=== PATIENT | female | born 1970 | race Asian ===

== ENCOUNTER 2020-08-13 08:34 | Outpatient (CLI) | payer OTHER ==
[2020-08-13] MEDS ORDERED: IOVERSOL 320 100 ML VIAL IVP ONE ×2 (08:51→11:31)
[2020-08-13] MEDS ORDERED: IOPAMIDOL-300 50 ML VIAL ONE (08:51)
[2020-08-13] MEDS ORDERED: IOPAMIDOL-300 50 ML VIAL PO ONE (11:32)
--- NOTE | 2020-08-13 14:35 | Nuclear Medicine Report ---
PROCEDURE: Bone Whole Body INDICATIONS: HX L BREAST CA RADIOPHARMACEUTICAL: 26.1 mCi Tc-99m MDP IV. TECHNIQUE: Delayed whole-body scintigrams were obtained approximately 3-4 hours after intravenous injection of r adiotracer. Anterior and posterior views were acquired from vertex to feet. Additional left and rig ht oblique views of the thorax as well as lateral views of the calvarium were obtained. COMPARISON: CT chest, abdomen, pelvis 08/13/2020 FINDINGS: No suspicious foci of uptake demonstrated to suggest osseous metastatic disease. There is normal excr etion within the kidneys and bladder. There is a small amount of radiopharmaceutical projecting over the left chest wall which may correspond to the patient's left breast cancer. IMPRESSION: 1. No definite osseous metastatic disease. 2. Indistinct activity demonstrated in the region of the left chest wall may correspond to uptake in patient's left breast cancer. Reviewed by: Jon Aranda MD on 08/13/2020 2:34 PM PDT Approved by: Jon Aranda MD on 08/13/2020 2:34 PM PDT Station ID: [id number]
--- NOTE | 2020-08-13 15:14 | CT Report ---
PROCEDURE: CHEST W INDICATIONS: HX L BREAST CA CONTRAST: IV CONTRAST: Optiray 320 ml: 100 PO CONTRAST: Isovue 300 ml50 TECHNIQUE: After the administration of intravenous contrast, 5 mm thick sections acquired from the pulmonary api [place] to the posterior costophrenic angles. 7 mm thick coronal MIP reformats were acquired. For radia tion dose reduction, the following was used: automated exposure control, adjustment of mA and/or kV according to patient size. COMPARISON: None. FINDINGS: Image quality: Excellent. Lungs and pleura: No acute air space opacities. No pleural effusions or pneumothorax. Central and peripheral airways are patent and normal in caliber. Mediastinum: Heart size is normal. No pericardial effusion. No mediastinal or hilar adenopathy by size criteria. Thoracic aorta and central pulmonary arteries are normal in size. Esophagus is nasim l in caliber. No hiatal hernia. Bones and chest wall: A peripherally enhancing mass is seen in the upper outer quadrant of the left breast measuring approximately 5.9 x 4.1 x 6.5 cm. There is central hypoattenuation that may indicate necrosis. A few surgical clips are seen along the posterolateral margin of the mass. The mass abuts the skin surface anterosuperiorly. There is focal obliteration of the fat plane between the mass in t he left anterior chest wall (image 32 of series 3). A 2 x 1.6 cm peripherally enhancing lesion is seen deep to the lateral margin of the pectoralis major muscle that may represent a enlarged level 2 lymph node. A heterogeneously enhancing mass in the lef t axilla measures 3.2 x 1.9 cm with associated surgical clips, most likely representing axillary lymp hadenopathy. Possible nonspecific small left internal mammary lymph nodes are seen (images 33 and 26 of series 3) measuring up to 0.4 cm in short axis diameter. No supraclavicular lymph nodes are seen. No right axillary lymph nodes are identified. No suspicious bony lesions. No vertebral body compression fractures. Thyroid gland appears normal. Abdomen: Visualized upper abdominal solid organs appear normal. Upper abdominal bowel loops are nor mal in caliber. IMPRESSION: 1. Large peripherally enhancing mass in the left breast measures up to 6.5 cm in greatest dimension and abuts the skin surface anteriorly. There is focal loss of fat plane between the mass and the ante rior chest wall, and involvement of the adjacent musculature is not excluded. No osseous invasion is seen. 2. Left axillary 3.2 x 1.9 cm peripherally enhancing mass most likely represents axillary metastatic disease. Additional enlarged level 2 lymph node is seen deep to the left pectoralis major muscle rocky suring 2 x 1.6 cm. Questionable nonspecific small left internal mammary lymph nodes are seen measurin g up to 0.4 cm in short axis diameter. No supraclavicular or right axillary lymphadenopathy. 3. No signs of distant metastatic disease in the chest. Reviewed by: Ab Paniagua MD on 08/13/2020 3:13 PM PDT Approved by: Ab Paniagua MD on 08/13/2020 3:13 PM PDT Station ID: [id number]
--- NOTE | 2020-08-13 15:23 | CT Report ---
PROCEDURE: Abdomen/Pelvis W INDICATIONS: HX L BREAST CA CONTRAST: IV CONTRAST: Optiray 320 ml: 100 PO CONTRAST: Isovue 300 ml50 TECHNIQUE: After the administration of oral and intravenous contrast, 5 mm thick sections acquired from the diap hragms to the symphysis. 5 mm thick coronal and sagittal reformats were acquired. For radiation dos e reduction, the following was used: automated exposure control, adjustment of mA and/or kV accordin g to patient size. COMPARISON: None. FINDINGS: Image quality: Excellent. ABDOMEN: Lung bases: Lung bases are clear. Heart size is normal. Solid organs: Liver and spleen are normal in size and enhancement. Gallbladder appears normal. Siddhartha iary system is non dilated. Pancreas enhances normally. No adrenal nodules. Kidneys demonstrate no rmal size and enhancement, without hydronephrosis. Peritoneum and bowel: Bowel loops demonstrate normal wall thickness and caliber. No free fluid or a ir. Nodes and vessels: No retroperitoneal or mesenteric adenopathy by size criteria. Aorta and inferior vena cava are normal in size. Miscellaneous: No ventral hernias. PELVIS: Genitourinary: Bladder wall thickness is normal. The uterus has an abnormal contour with heterogene ous enhancement, most likely secondary to multiple uterine fibroids. No suspicious adnexal mass is id entified. Miscellaneous: No inguinal hernias or adenopathy. Bones: No suspicious bony lesions. No vertebral body compression fractures. IMPRESSION: 1. No CT evidence of metastatic disease in the abdomen or pelvis. 2. Heterogeneous enhancement and lobular appearance of the uterus is most likely secondary to multip le uterine fibroids. Pelvic ultrasound may be obtained for confirmation if clinically indicated. Reviewed by: Ab Paniagua MD on 08/13/2020 3:21 PM PDT Approved by: Ab Paniagua MD on 08/13/2020 3:21 PM PDT Station ID: [id number]
== END 2020-08-13 08:35 | disposition home or self-care (01) ==
LOC: DI 08:34
PROVIDERS: ATTEND Internal Medicine Hematology & Oncology
DX: N63.21 Unspecified lump in the left breast, upper outer quadrant (principal); N63.32 Unspecified lump in axillary tail of the left breast
CPT/HCPCS: 71260; 74177; 78306; Q9967

== ENCOUNTER 2021-11-12 10:50 | Outpatient (CLI) | payer OTHER ==
--- NOTE | 2021-11-12 12:23 | CT Report ---
PROCEDURE: CHEST WO INDICATIONS: F/U BREAST CANCER STAGE 3-4 TECHNIQUE: Noncontrast 1mm axial images were acquired from the pulmonary apices to the posterior costophrenic an gles. Axial 5 mm soft tissue kernel reconstructions were performed as well as 8 mm axial MIP and cor onal and sagittal 5 mm reformations. For radiation dose reduction, the following was used: automate d exposure control, adjustment of mA and/or kV according to patient size. COMPARISON: 08/13/2020 FINDINGS: Image quality: Excellent. Lungs and pleura: No acute air space opacities. No pleural effusions or pneumothorax. Central and peripheral airways are patent and normal in caliber. Mediastinum: Heart size is normal. No pericardial effusion. No mediastinal adenopathy by size crit eria. Thoracic aorta and central pulmonary arteries are normal in size. Esophagus is normal in luis alberto lawanda. No hiatal hernia. Bones and chest wall: No suspicious bony lesions. No vertebral body compression fractures. No axil sudhir or supraclavicular adenopathy by size criteria. Surgical absence of the left breast. Left axilla ry node resection. Right chest Port-A-Cath, the tip which extends to the SVC right atrial junction. T hyroid is grossly unremarkable as imaged. Abdomen: Large fecal load. Visualized upper abdominal solid organs and bowel loops appear normal in t he absence of contrast. IMPRESSION: 1. Interval left mastectomy and left axillary node resection. 2. No evidence of residual, recurrent, or static disease in the chest. 3. Large fecal load. CLINICAL RECOMMENDATION STATEMENTS: In patients <35 years with an ITN detected on CT, MRI, or extrathyroidal ultrasound, the Committee re commends further evaluation with dedicated thyroid ultrasound if the nodule is "e1 cm and has no susp icious imaging features, and if the patient has normal life expectancy. In patients "e35 years with an ITN detected on CT, MRI, or extrathyroidal ultrasound, the Committee r ecommends further evaluation with dedicated thyroid ultrasound if the nodule is "e1.5 cm and has no s uspicious imaging features, and if the patient has normal life expectancy. (ACR, 2014) Reviewed by: Ruy Nguyễn MD on 11/12/2021 12:21 PM PDT Approved by: Ruy Nguyễn MD on 11/12/2021 12:21 PM PDT Station ID: [id number]
--- NOTE | 2021-11-12 12:37 | CT Report ---
PROCEDURE: Abdomen/Pelvis WO INDICATIONS: F/U BREAST CANCER STAGE 3-4 TECHNIQUE: Noncontrast 5 mm thick sections acquired from the diaphragms to the symphysis. 5 mm coronal and sagi ttal reformats were then performed. For radiation dose reduction, the following was used: automated exposure control, adjustment of mA and/or kV according to patient size. COMPARISON: CT abdomen and pelvis with contrast dated 08/13/2020. FINDINGS: Image quality: Excellent. ABDOMEN: Lung bases: Lung bases are clear. Heart size is normal. Left breast is surgically absent. Solid organs: Liver and spleen are normal in size. Gallbladder is unremarkable, without calcified g allstones. Pancreas is normal in contours. No adrenal nodules. Kidneys are normal in size, without hydronephrosis or nephrolithiasis. Peritoneum and bowel: Unenhanced bowel loops demonstrate normal wall thickness and caliber. No free fluid or air. Very large fecal load. Nodes and vessels: No retroperitoneal or mesenteric adenopathy by size criteria. Aorta and inferior vena cava are normal in caliber. Miscellaneous: No ventral hernias. PELVIS: Genitourinary: Bladder wall thickness is normal. Miscellaneous: No inguinal hernias or adenopathy. Bones: No suspicious bony lesions. No vertebral body compression fractures. IMPRESSION: 1. Negative CT of the abdomen and pelvis with contrast for evidence of metastatic disease. 2. Very large fecal load. Reviewed by: Ruy Nguyễn MD on 11/12/2021 12:36 PM PDT Approved by: Ruy Nguyễn MD on 11/12/2021 12:36 PM PDT Station ID: [id number]
[2021-11-12] MEDS ORDERED: DIATR MEGLU/DIATRIZOATE SODIUM 120 ML BOTTLE PO ONE (14:18)
== END 2021-11-12 10:51 | disposition home or self-care (01) ==
LOC: DI 10:50
PROVIDERS: ATTEND Internal Medicine Hematology & Oncology
DX: C50.412 Malignant neoplasm of upper-outer quadrant of left female breast (principal); Z90.12 Acquired absence of left breast and nipple
CPT/HCPCS: 71250; 74176; Q9963

== ENCOUNTER 2022-08-12 11:12 | Outpatient (CLI) | payer OTHER ==
[2022-08-12] MEDS ORDERED: iohexoL-300 100 ML VIAL ONE (11:22)
[2022-08-12] MEDS ORDERED: iohexoL-300 100 ML VIAL IVP ONE (14:07)
[2022-08-12] MEDS ORDERED: DIATRIZOATE MEGLU/DIATRIZO SOD 30 ML BOTTLE PO ONE (14:08)
--- NOTE | 2022-08-12 16:45 | CT Report ---
PROCEDURE: CHEST W INDICATIONS: BREAST CA CONTRAST:100ml Omnipaque 300 TECHNIQUE: After the administration of intravenous contrast, 1 mm axial images were acquired from the pulmonary apices through the posterior costophrenic angles. Axial 5 mm soft tissue kernel reconstructions were performed as well as 8 mm axial MIP and coronal and sagittal 5 mm reformations. For radiation dose reduction, the following was used: automated exposure control, adjustment of mA and/or kV according to patient size. COMPARISON: CT chest, 11/12/2021. FINDINGS: Image quality: Excellent. Lungs and pleura: No acute air space opacities. No pleural effusions or pneumothorax. Central and peripheral airways are patent and normal in caliber. Mediastinum: Heart size is normal. No pericardial effusion. No mediastinal or hilar adenopathy by size criteria. Thoracic aorta and central pulmonary arteries are normal in size. Esophagus is nasim l in caliber. No hiatal hernia. Bones and chest wall: Left mastectomy. Surgical clips in left axilla consistent with axillary lymph node dissection. No suspicious bony lesions. No vertebral body compression fractures. No axillary o r supraclavicular adenopathy by size criteria. The thyroid is normal in size and there are no incide ntal findings. There is a Port-A-Cath in the right anterior chest. Abdomen: Visualized upper abdominal solid organs appear normal. Upper abdominal bowel loops are nor mal in caliber. IMPRESSION: 1. Postsurgical changes related to left mastectomy and axillary lymph node dissection. 2. No jeaneth or distant metastasis in thorax. Reviewed by: Vianca Paz MD on 08/12/2022 3:44 PM AKDT Approved by: Vianca Paz MD on 08/12/2022 3:44 PM AKDT Station ID: [id number]
--- NOTE | 2022-08-13 10:19 | CT Report ---
PROCEDURE: ABDOMEN/PELVIS W INDICATIONS: BREAST CA CONTRAST: 100ml Omnipaque 300 TECHNIQUE: After the administration of oral and intravenous contrast, 5 mm thick sections acquired from the diap hragms to the symphysis. 5 mm thick coronal and sagittal reformats were acquired. For radiation dos e reduction, the following was used: automated exposure control, adjustment of mA and/or kV accordin g to patient size. COMPARISON: CT abdomen and pelvis, 11/12/2021. CT of abdomen and pelvis, 08/13/2020. FINDINGS: Image quality: Excellent. ABDOMEN: Lung bases: Lung bases are clear. Heart size is normal. Solid organs: Liver and spleen are normal in size and enhancement. Gallbladder is normal Biliary s ystem is non dilated. Pancreas enhances normally. No adrenal nodules. Kidneys demonstrate normal s ize and enhancement, without hydronephrosis. Peritoneum and bowel: Bowel loops demonstrate normal wall thickness and caliber. There is a large am ount stool in colon. No free fluid or air. Nodes and vessels: No retroperitoneal or mesenteric adenopathy by size criteria. Aorta and inferior vena cava are normal in size. Miscellaneous: No ventral hernias. PELVIS: Genitourinary: Bladder wall thickness is normal. Miscellaneous: No inguinal hernias or adenopathy. Bones: No suspicious bony lesions. No vertebral body compression fractures. IMPRESSION: 1. No metastatic disease is identified in abdomen or pelvis. 2. A large amount of stool in colon. Reviewed by: Vianca Paz MD on 08/13/2022 9:17 AM FRED Approved by: Vianca Paz MD on 08/13/2022 9:17 AM [id number] Station ID: [id number]
== END 2022-08-12 11:13 | disposition home or self-care (01) ==
LOC: DI 11:12
PROVIDERS: ATTEND Internal Medicine Hematology & Oncology
DX: C50.412 Malignant neoplasm of upper-outer quadrant of left female breast (principal); M79.81 Nontraumatic hematoma of soft tissue; M25.532 Pain in left wrist
CPT/HCPCS: 71260; 74177; Q9963; Q9967

== ENCOUNTER 2023-01-01 08:24 | Outpatient (CLI) | payer OTHER ==
--- NOTE | 2023-01-01 11:33 | MRI Report ---
PROCEDURE: BRAIN W/WO INDICATIONS: BREAST CA CONTRAST: GADAVIST 4.9 ML TECHNIQUE: Noncontrast axial T1 spin echo, axial T2 fast spin echo, sagittal and axial FLAIR, coronal T2 fast sp in echo, axial gradient echo, axial diffusion and ADC through the brain. After the administration of contrast, axial and coronal T1 spin echo with fat saturation through the brain. COMPARISON: None. FINDINGS: Image quality: Excellent. CSF spaces: Basal cisterns are patent. No extra-axial fluid collections. Ventricles are normal in size and shape. Brain: No midline shift. No intracranial bleeds or masses. No abnormal intracranial enhancement. There is cerebral volume loss for age. There is periventricular white matter chronic small vessel is chemic change. The brainstem appears normal. Diffusion-weighted images demonstrate no acute ischemi c insults. No chronic ischemic insults. Normal intravascular flow voids are present. Skull and face: Calvarial marrow is normal in signal. Orbits appear normal. Sinuses: Sinuses and mastoids appear clear. IMPRESSION: No evidence of intracranial metastatic disease. No acute intracranial abnormalities. Reviewed by: Armando Gonzalez MD on 01/01/2023 11:32 AM PDT Approved by: Armando Gonzalez MD on 01/01/2023 11:32 AM PDT Station ID: [id number]
== END 2023-01-01 08:25 | disposition home or self-care (01) ==
LOC: DI 08:24
PROVIDERS: ATTEND Internal Medicine Hematology & Oncology
DX: C50.412 Malignant neoplasm of upper-outer quadrant of left female breast (principal)
CPT/HCPCS: 70553; A9585

== ENCOUNTER 2023-01-07 08:59 | Outpatient (CLI) | payer OTHER ==
[2023-01-07] MEDS ORDERED: iohexoL-300 100 ML VIAL IVP ONE (11:13)
[2023-01-07] MEDS ORDERED: BARIUM SULFATE 450 ML BOTTLE PO ONE (11:13)
--- NOTE | 2023-01-08 00:52 | CT Report ---
PROCEDURE: CHEST W INDICATIONS: BREAST CA CONTRAST: 100ml Omni 300 TECHNIQUE: After the administration of intravenous contrast, 1 mm axial images were acquired from the pulmonary apices through the posterior costophrenic angles. Axial 5 mm soft tissue kernel reconstructions were performed as well as 8 mm axial MIP and coronal and sagittal 5 mm reformations. For radiation dose reduction, the following was used: automated exposure control, adjustment of mA and/or kV according to patient size. COMPARISON: CT chest abdomen and pelvis 08/12/2022. FINDINGS: Image quality: Excellent. Lungs and pleura: No consolidation. No pleural effusions. No pneumothorax. No suspicious pulmonary n odules which require follow up. Mediastinum: Heart size is normal. No pericardial effusion. No large vessel abnormality. No mediastin al adenopathy by size criteria. Right chest port catheter in place with tip terminating in the right atrium. Chest wall and lower neck: Thyroid is unremarkable. Status post left mastectomy and axillary lymph no de dissection. Bones: No aggressive osseous abnormality. Upper Abdomen: Please see separately dictated CT abdomen and pelvis obtained concurrently. IMPRESSION: Status post left mastectomy and left axillary node dissection. No evidence of metastatic disease in t he chest. Reviewed by: Keara Hussein MD on 01/08/2023 12:51 AM PDT Approved by: Keara Hussein MD on 01/08/2023 12:51 AM PDT Station ID: [id number]
--- NOTE | 2023-01-08 00:57 | CT Report ---
PROCEDURE: ABDOMEN/PELVIS W INDICATIONS: BREAST CA CONTRAST: 100ml Omni 300 TECHNIQUE: After the administration of intravenous and oral contrast, 5 mm thick sections acquired from the diap hragms to the symphysis. 5 mm thick coronal and sagittal reformats were acquired. For radiation dos e reduction, the following was used: automated exposure control, adjustment of mA and/or kV accordin g to patient size. COMPARISON: CT abdomen 08/12/2022 FINDINGS: Image quality: Excellent. Lung bases and heart: Please see separately dictated CT chest acquired concurrently. Liver: No solid mass. Gallbladder and biliary tree: No radiopaque stones or wall thickening. No biliary dilation. Spleen: No splenomegaly. Pancreas: No pancreatic ductal dilation. Adrenals: No adrenal nodule. Kidneys and ureters: No hydronephrosis. No renal cystic lesion which requires follow up. No solid mas s. Bowel and peritoneum: No bowel distension. No pathologic free fluid. Lymph nodes: No central or retroperitoneal adenopathy. Vessels: No infrarenal aortic aneurysm. PELVIS Reproductive organs: Unremarkable. Bladder: No abnormal wall thickening, accounting for underdistension. Pelvic lymph nodes: No pelvic adenopathy by size criteria. Bones: No aggressive osseous abnormality. Other: No significant ventral or inguinal hernia. IMPRESSION: No evidence of metastatic disease in the abdomen or pelvis. Reviewed by: Keara Hussein MD on 01/08/2023 12:56 AM PDT Approved by: Keara Hussein MD on 01/08/2023 12:56 AM PDT Station ID: [id number]
== END 2023-01-07 09:00 | disposition home or self-care (01) ==
LOC: DI 08:59
PROVIDERS: ATTEND Internal Medicine Hematology & Oncology
DX: C50.412 Malignant neoplasm of upper-outer quadrant of left female breast (principal); M79.81 Nontraumatic hematoma of soft tissue; M25.532 Pain in left wrist; Z90.12 Acquired absence of left breast and nipple
CPT/HCPCS: 71260; 74177; A9270; Q9967

== ENCOUNTER 2024-02-15 13:10 | Outpatient (CLI) | payer OTHER ==
[2024-02-15] MEDS ORDERED: GADOTERATE MEGLUMINE 5 MMOL/10 ML VIAL ONE (13:16)
[2024-02-15] MEDS: GADOTERATE MEGLUMINE 5 MMOL/10 ML VIAL IVP ONE (15:11)
--- NOTE | 2024-02-16 12:35 | MRI Report ---
PROCEDURE: Chest W/WO INDICATIONS: BREAST CA WITH STERNAL INVOLVMENT CONTRAST: clariscan 9.4ml TECHNIQUE: Precontrast Axial 2-D spoiled GE in- and [id number], axial breath-hold T2 FSE, axial STIR FSE. Aft er administration of contrast, axial 2-D spoiled GE with fat saturation acquired over the lesion of c oncern. COMPARISON: 10/21/2023 FINDINGS: Image quality: Excellent. Region of interest: There is a soft tissue mass encasing the sternum. The mass measures approximatel y 5.0 x 2.2 x 8.9 cm (transverse, AP, CC). The mass also makes contact with the costochondral junctio n of the bilateral second through fourth ribs. There is an enlarged left internal mammary node measur ing 9 mm short axis (series 19, image 30). No significant pulmonary nodule. No suspicious liver lesion. No axillary adenopathy. IMPRESSION: Soft tissue mass encasing the sternum, most consistent with osseous metastatic disease. Enlarged left internal mammary lymph node, concerning for jeaneth disease. Reviewed by: Teodoro Myers MD on 02/16/2024 12:33 PM PDT Approved by: Teodoro Myers MD on 02/16/2024 12:33 PM PDT Station ID: [id number]
== END 2024-02-15 13:11 | disposition home or self-care (01) ==
LOC: DI 13:10
PROVIDERS: ATTEND Internal Medicine Hematology & Oncology
DX: R59.0 Localized enlarged lymph nodes (principal); C50.412 Malignant neoplasm of upper-outer quadrant of left female breast; M79.81 Nontraumatic hematoma of soft tissue; C79.51 Secondary malignant neoplasm of bone; R97.0 Elevated carcinoembryonic antigen [CEA]
CPT/HCPCS: 71552; A9575